=== PATIENT | male | born 1995 | race Caucasian/White ===

== ENCOUNTER 2019-10-05 19:45 | Emergency (ER) | payer BC, SELFPAY ==
[2019-10-05 19:54] VITALS: BP 134/68; PULSE 72; RESP 17; TEMP 36.8; O2SAT 98; BMI 20.5
[2019-10-05] MEDS: lidocaine 1% INJ 20 mL SUBCUT (20:26)
[2019-10-05] MEDS: tetanus-dipt-pertussis 0.5 mL SDV IM (20:27)
--- NOTE | 2019-10-05 20:43 | W.ED.WOUNDLC ---
HPI - Wound/Laceration General: Chief Complaint: Wound/Laceration Stated Complaint: Right hand pain Time Seen by Provider: 10/05/19 19:56 History of Present Illness: HPI narrative: Tommy is a nice 23-year-old male who comes in with complaints of cuts to his right hand. He states he was sliding down a basketball goal when he caught his right hand on an edge of the metal. He denies any distal numbness or weakness and he has full range of motion of his hand. He states he is able to fully flex and extend his fingers without any difficulty but he is concerned about an area on his thumb and his middle finger. Review of Systems General: Reports: 10 or more systems reviewed and unremarkable except in HPI and below PFSH ED PFSH: Social History Smoking and tobacco status: current every day smoker Physical Exam Const: COMMON NORMALS: no apparent distress, oriented x3, no limitations, healthy appearing and well nourished EXAM LIMITATIONS: no altered mental status GENERAL APPEARANCE: cooperative, well kempt and well developed ORIENTATION/CONSCIOUSNESS: Yes awake HENMT: COMMON NORMALS: normocephalic, head/scalp atraumatic, hearing grossly normal bilaterally, external ears normal, EAC's normal, external nose normal and moist oral mucous membranes HEAD & SCALP: normal to inspection, normocephalic and atraumatic FACE & SINUS: normal facial exam and face symmetric NOSE: external nose normal and nares normal EXTERNAL EAR: Yes external ears normal EXTERNAL AUDITORY CANAL: EAC's normal MOUTH: oral and palatal mucosa normal and tongue normal Eye: COMMON NORMALS: PERRL, EOMs intact bilaterally, conjunctivae normal and no scleral icterus GENERAL EYE: normal appearance of both eyes and normal light reflex CONJUNCTIVA: Yes conjunctivae normal SCLERA: sclerae normal CORNEA: Yes corneas normal PUPIL: Yes PERRL DIRECT OPHTHALMOSCOPY: Yes normal light reflex Neck/C-Spine: COMMON NORMALS: full ROM, no lymphadenopathy, supple, no meningeal signs and no JVD GENERAL: Yes normal visual inspection and Yes trachea midline CERVICAL SPINE: Yes cervical ROM normal Chest: COMMONS NORMALS: inspection of chest normal and palpation of chest normal Resp: COMMON NORMALS: normal respiratory effort, no retractions, no use of accessory muscles and clear to auscultation bilaterally EFFORT & INSPECTION: Yes able to speak in complete sentences AUSCULTATION: clear to auscultation bilaterally Cardio: COMMON NORMALS: no JVD, regular rate, regular rhythm, S1 normal heart sound, S2 normal heart sound, no gallops, no clicks, no murmurs and no rub JUGULAR VENOUS DISTENTION: no JVD RATE: regular rate RHYTHM: regular rhythm HEART SOUNDS: S1 normal and S2 normal GI: COMMON NORMALS: soft to palpation, non-tender, no hepatosplenomegaly and no masses INSPECTION: Yes normal to inspection PALPATION: Yes soft and Yes no hepatosplenomegaly : COMMON NORMALS: Yes no CVA tenderness BLADDER/KIDNEY EXAM: Yes no CVA tenderness Back/Pelvis: COMMON NORMALS: no CVA tenderness, thoracic and lumbar spine normal to inspection, no thoracic nor lumbar tenderness and thoraco-lumbar ROM normal Extremity: COMMON NORMALS: normal to inspection, full ROM, normal capillary refill, no joint enlargement, no clubbing, cyanosis or edema and no calf tenderness Neuro: COMMON NORMALS: oriented x3, CN's II-XII intact bilaterally, moves all extremities, no focal motor deficits and no sensory deficits noted MENINGEAL SIGNS: Yes no meningeal signs Psych: COMMON NORMALS: mental status grossly normal, thought process normal, cooperative, affect normal, speech normal and activity/motor behavior normal APPEARANCE: Yes well kempt SPEECH: Yes normal speech THOUGHT PROCESS: normal thought process Skin: NARRATIVE SKIN EXAM: Skin avulsion over the medial and volar thumb pad. Right middle finger with 3 cm volar laceration. Procedures Laceration Laceration 1: Site: hand Side (If applicable): right Size (cm): 3 Description: linear Depth: simple, single layer Local Anesthetic: lidocaine 1% Amount of anesthesia used (mL): 3 Pre-repair: wound explored, irrigated extensively and deep structures intact Skin layer closed with: nylon Size (cm): 4-0 Number of sutures: 3 Technique: horizontal mattress Course Vital Signs: Vital signs: Vital Signs Temperature 98.6 F 10/05/19 21:08 Pulse Rate 92 10/05/19 21:08 Respiratory Rate 16 10/05/19 21:08 Blood Pressure 116/98 10/05/19 21:08 Pulse Oximetry 99 10/05/19 21:08 MDM - Wound/Laceration MDM Narrative: Medical decision making narrative: Prior to anesthesia the patient denied any tendon dysfunction, foreign body sensation or otherwise. After anesthesia the patient's wound was examined to its depth in a bloodless field through full active and passive range of motion. There was no evidence of foreign body or tendon involvement found. Patient had good cosmetic repair and his wounds were dressed. He was advised on how to do dressing changes at home and we will place him on prophylactic antibiotics to prevent any infection. Discharge Plan Discharge Patient Disposition: Home, Self-Care Clinical Impression: Laceration, Avulsion of skin Condition: Stable Prescriptions: New Bactrim DS 800-160 mg tablet 1 tab PO Q12H 10 Days Qty: 20 RF: 0 Discharge Orders: Discharge Order (Routine); Ordered 10/05/19 Ordered By: Magdalena Holden Referrals: William Barahona Jr, MD [Family Provider] - 1-3 days Discharge Diet: Advance as tolerated Discharge Activity: Limit activity as instructed Patient Instructions: Laceration (ED) Activity Restrictions/Additional Instructions: Please return to the ER immediately for any of the signs or symptoms listed on your discharge instruction sheets, worsening/changing of your symptoms, you are not getting better as quickly as expected, or for ANY other cause or concerns. Your sutures will need to be removed in 10 days. He can follow-up with your regular doctor or return here for removal. Stand Alone Forms: Work/School Release Discharge Date/Time: 10/05/19 21:08 Coding Level of Care Code ED Spouting Installer for Ketan Gonzalez
[2019-10-05] MEDS: sulfamethoxazole-trimeth DS 160-800 mg Tablet 1 TAB PO (21:07)
[2019-10-05 21:08] VITALS: BP 116/98; PULSE 92; RESP 16; TEMP 37; O2SAT 99
== END 2019-10-05 21:08 | disposition home or self-care (01) ==
PROVIDERS: Emergency Provider Emergency Medicine; Family Provider Pediatrics Adolescent Medicine
DX: S61.212A Laceration without foreign body of right middle finger without damage to nail, initial encounter (principal); S61.001A Unspecified open wound of right thumb without damage to nail, initial encounter; F17.200 Nicotine dependence, unspecified, uncomplicated; W26.8XXA Contact with other sharp object(s), not elsewhere classified, initial encounter
CPT/HCPCS: 12002; 12345; 90471; 90715; 99281; 99283; J2001

== ENCOUNTER → 2020-07-03 13:18 | Outpatient (BNVA) | payer BC, SELFPAY | PROVIDERS: Family Provider Pediatrics Adolescent Medicine; Visit Provider Nurse Practitioner Family | DX: Z20.828 Contact with and (suspected) exposure to other viral communicable diseases (principal) | CPT/HCPCS: 87635 ==

== ENCOUNTER 2020-11-23 14:37 | Emergency (ER) | payer BC, SELFPAY ==
[2020-11-23 14:54] VITALS: BP 135/75; PULSE 68; RESP 16; TEMP 36.5; O2SAT 98; BMI 21.8
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
[2020-11-23 17:24] VITALS: BP 135/75; PULSE 68; RESP 14; O2SAT 98
[2020-11-23 17:51] LABS: Basophils # 0.1 10^3/uL (0.0-0.1); Basophils % 0.5 %; Eosinophils # 0.3 10^3/uL (0.0-0.8); Eosinophils % 2.9 %; Hematocrit 44.9 % (42.0-52.0); Hemoglobin 15.9 g/dL (11.7-16.6); Lymphocytes # 1.5 10^3/uL (0.8-4.8); Mean Corpuscular HGB Conc 35.4 g/dL (30.0-36.0); Mean Corpuscular Hemoglobin 31.2 pg (28.0-34.0); Mean Corpuscular Volume 88.2 fL (80-94); Mean Platelet Volume 9.2 fL (7.4-10.4); Monocytes # 0.9 10^3/uL (0.2-0.9); Neutrophils # 6.78 10^3/uL (1.8-7.7); Neutrophils % 71.1 %; Nucleated Red Blood Cells % 0 %; Platelet Count 301 10^3/cmm (130-400); Red Blood Count 5.09 10^6/uL (4.1-5.3); Red Cell Distribution Width 12.1 % (12.1-15.1); White Blood Count 9.6 10^3/uL (4.0-10.0)
[2020-11-23] MEDS: iohexol 300 mg/mL 100 mL Btl IV (18:04)
[2020-11-23 18:13] LABS: Alanine Aminotransferase 22 U/L (0-41); Albumin Level 4.7 g/dL (3.5-5.2); Alkaline Phosphatase 70 IU/L (40-130); Anion Gap 14.8 (5-19); Aspartate Amino Transferase 28 U/L (0-40); Blood Urea Nitrogen 13 mg/dL (6-20); Calcium 9.3 mg/dL (8.5-10.5); Carbon Dioxide 29 mmol/L (22-29); Chloride 96 mmol/L (98-107); Globulin 3.2 g/dL (1.3-4.6); Glomerular Filtration Rate 137.4 mL/min (90-130); Glucose 80 mg/dL (65-115); Osmolality Calculated 281 mOsm/kg (285-295); Potassium 3.8 mmol/L (3.5-5.1); Sodium 136 mmol/L (136-145); Total Bilirubin 0.9 mg/dL (0.15-1.2); Total Protein 7.9 g/dL (6.6-8.7)
[2020-11-23] MEDS: orphenadrine 30 mg/mL Inj 2 mL 60 MG IM (18:35)
[2020-11-23] MEDS: ketorolac 60 mg/2 mL INJ IM (18:37)
--- NOTE | 2020-11-24 08:24 | DCPLANNER ---
manager in home had message to schedule a follow up appointment for patient with ortho. manager in home called the ortho clinic, spoke Nery, gave clinic patients information. manager in home was told that patients information would be printed and reviewed. Clinic will call patient with appointment information.
--- NOTE | 2020-11-26 14:56 | DCPLANNER ---
Patient has a follow up appointment scheduled for Monday, November 30, 2020 at 9:[address] Kaur at ortho. Clinic will call patient with appointment information.
--- NOTE | 2020-12-23 15:31 | DCPLANNER ---
Patient had a follow up appointment scheduled for 11.30.[address] Kaur at [facility] - patient did attend appointment.
== END 2020-11-23 21:16 | disposition home or self-care (01) ==
PROVIDERS: Family Medicine; Emergency Provider Physician Assistant
DX: S16.1XXA Strain of muscle, fascia and tendon at neck level, initial encounter (principal); S32.018A Other fracture of first lumbar vertebra, initial encounter for closed fracture; V57.5XXA Driver of pick-up truck or van injured in collision with fixed or stationary object in traffic accident, initial encounter; F17.220 Nicotine dependence, chewing tobacco, uncomplicated
CPT/HCPCS: 70450; 72125; 72131; 74177; 80053; 85025; 96372; 99283; J1885; J2360; Q9967

== ENCOUNTER → 2020-12-23 15:32 | Outpatient (BNVA) | payer BC, SELFPAY | PROVIDERS: Visit Provider Orthopaedic Surgery | DX: S32.009A Unspecified fracture of unspecified lumbar vertebra, initial encounter for closed fracture (principal); X58.XXXA Exposure to other specified factors, initial encounter | CPT/HCPCS: 72100 ==

== ENCOUNTER → 2021-02-03 08:26 | Outpatient (BNVA) | payer BC, SELFPAY | PROVIDERS: Visit Provider Orthopaedic Surgery | DX: S32.009A Unspecified fracture of unspecified lumbar vertebra, initial encounter for closed fracture (principal); X58.XXXA Exposure to other specified factors, initial encounter | CPT/HCPCS: 72100 ==